=== PATIENT | female | born 1990 | race Caucasian/White ===

== ENCOUNTER 2019-12-30 18:10 | Emergency (ER) | payer SELFPAY ==
[~2019-12-30] VITALS: Ht 154.9 cm; Wt 88.9 kg
[2019-12-30 18:18] VITALS: BP 126/86
[2019-12-30] MEDS ORDERED: SODIUM CHLORIDE FLUSH 10 ML SYR IVF STA (18:21)
--- NOTE | 2019-12-30 18:42 | NUR ---
29/F C/O LOWER ABD PAIN BURNING SATION RADIATING TO LOWER BACK X 1 WEEK, WORSENING LAST NIGHT. MILD NAUSEA, NO VOMITING. MORE BURNING PAIN WHEN VOIDING/HAVING BM. PT FEELS LIKE THE PAIN IS IN THE BLADDER. ALTERNATING DIARRHEA AND CONSTIPATION. PAIN DECREASED AFTER HAVING BM. LBM TODAY. 07/23 PAIN NOW. DENIES HEMATURIA. HX DENIES Addendum: 12/30/19 at 1855 by FAN ALSO STATES DARKER URINE THAN NORMAL AND FOUL ODOR TO THE URINE
--- NOTE | 2019-12-30 18:54 | NUR ---
LABS DRAWN BEDIDE AND HANDED TO PRESSURE TEST OPERATOR
--- NOTE | 2019-12-30 18:58 | NUR ---
PT IS AWARE OF NEED FOR URINE SAMPLE BUT UNABLE TO PROVIDE AT THIS TIME.
--- NOTE | 2019-12-30 19:12 | NUR ---
Pt report given to AILYN LORD. Transfer of care at this time.
[2019-12-30 19:13] LABS: BASOPHILS # (AUTO) 0.1 K/uL (0.00-0.22); EOSINOPHILS # (AUTO) 0.1 K/uL (0-0.4); EOSINOPHILS % (AUTO) 0.8 % (0.0-4.0); HEMATOCRIT 35.2 % (36-48); HEMOGLOBIN 11.8 g/dL (12.0-16.0); LYMPHOCYTES # (AUTO) 1.9 K/uL (2.5-16.5); LYMPHOCYTES % (AUTO) 20.5 % (20.5-51.1); MEAN CORPUSCULAR HEMOGLOBIN 27 pg (27-31); MEAN CORPUSCULAR HGB CONC 34 g/dL (33-37); MEAN CORPUSCULAR VOLUME 80.2 fL (80-94); MONOCYTES # (AUTO) 0.5 K/uL (0.8-1.0); MONOCYTES % (AUTO) 4.9 % (1.7-9.3); NEUTROPHILS # (AUTO) 6.9 K/uL (1.8-7.7); NEUTROPHILS % (AUTO) 72.8 % (42.2-75.2); PLATELET COUNT (AUTO) 368 K/uL (140-450); RED BLOOD CELL COUNT(AUTO) 4.38 MIL/uL (4.20-5.40); RED CELL DISTRIBUTION WIDTH 14.9 % (11.6-13.7); WHITE BLOOD COUNT (AUTO) 9.5 K/uL (4.8-10.8)
--- NOTE | 2019-12-30 19:13 | NUR ---
REPORT RECIEVED FROM AILYN SHERIDAN. TRANSFER OF CARE AT THIS TIME.
--- NOTE | 2019-12-30 19:31 | NUR ---
PT ENCOURAGED TO VOID. PT AMBULATED TO RR WITH STEADY GAIT.
[2019-12-30 19:54] LABS: ALBUMIN 3.6 g/dL (3.4-5.0); ANION GAP 14.2 (8-16); CARBON DIOXIDE 25.8 mmol/L (21-32); CREATININE 0.7 mg/dL (0.6-1.3); TOTAL BILIRUBIN 0.5 mg/dL (0.0-1.0)
[2019-12-30 20:03] LABS: APPEARANCE,URINE CLEAR (CLEAR); BILIRUBIN,URINE NEGATIVE (NEGATIVE); BLOOD, URINE TRACE-I (NEGATIVE); COLOR,URINE YELLOW (YELLOW); LEUKOCYTE ESTERASE ,URINE 1+ (NEGATIVE); NITRITE, URINE NEGATIVE (NEGATIVE); UGLUCOSE NEGATIVE (NEGATIVE)
[2019-12-30 20:32] LABS: RBC,URINE 0-5 /HPF (0-5)
[2019-12-30 20:50] VITALS: BP 115/76
--- NOTE | 2019-12-30 20:50 | NUR ---
Patient discharged with v/s stable. Written and verbal after care instructions given and explained. Patient alert, oriented and verbalized understanding of instructions. Ambulatory with steady gait. All questions addressed prior to discharge. ID band removed. Patient advised to follow up with PMD. Rx of CIPRO, PHENAZOPYRIDINE HYRDOCHLORIDE, TYLENOL EXTRA STRENGTH given. Patient educated on indication of medication including possible reaction and side effects. Opportunity to ask questions provided and answered.
== END 2019-12-30 20:50 | disposition home or self-care (01) ==
LOC: MED 18:10
DX: N39.0 Urinary tract infection, site not specified (principal); Z91.09 Other allergy status, other than to drugs and biological substances; Z90.49 Acquired absence of other specified parts of digestive tract
CPT/HCPCS: 36415; 80053; 81001; 81025; 83690; 85025; 87086; 99283

== ENCOUNTER 2022-01-27 20:10 | Emergency (ER) | payer MEDICAID ==
[~2022-01-27] VITALS: Ht 154.9 cm; Wt 88.9 kg
[2022-01-27 20:27] VITALS: BP 147/70
[2022-01-28 00:11] VITALS: BP 147/70
--- NOTE | 2022-01-28 00:11 | NUR ---
Patient discharged with v/s stable. Written and verbal after care instructions given and explained. Patient verbalized understanding. Ambulatory with steady gait. All questions addressed prior to discharge. Advised to follow up with PMD.
== END 2022-01-28 00:11 | disposition home or self-care (01) ==
LOC: MED 20:10
DX: H92.01 Otalgia, right ear (principal); K08.89 Other specified disorders of teeth and supporting structures; Z88.8 Allergy status to other drugs, medicaments and biological substances
CPT/HCPCS: 99282